=== PATIENT | male | born 2000 | race African-American/Black ===

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

== ENCOUNTER 2021-03-01 23:13 | Emergency (ER) | payer OTHER ==
[~2021-03-01] VITALS: Ht 172.7 cm; Wt 67.0 kg
[2021-03-01] MEDS ORDERED: MEDICAL MARIJUANA (23:30)
[2021-03-01] MEDS ORDERED: KEFLEX500 MG PO (23:33)
[2021-03-01 23:58] VITALS: BP 115/55
== END 2021-03-01 23:58 | disposition home or self-care (01) | DRG 605 ==
LOC: ED 23:13
DX: S91.331A Puncture wound without foreign body, right foot, initial encounter (principal); W45.0XXA Nail entering through skin, initial encounter; Y92.410 Unspecified street and highway as the place of occurrence of the external cause